=== PATIENT | male | born 1955 | race Caucasian/White ===

== ENCOUNTER → 2017-04-16 | Day surgery (SDC) | payer OTHER ==
[~2017-04-16] VITALS: Ht 180.3 cm; Wt 117.9 kg
[~2017-04-16] MED LIST: ALBUTEROL2.5 MG/31 INH; ALEVE220 MG PO; B COMPLEX1 EACH PO; CRESTOR20 MG PO; LASIX 40 MG TAB40 M1 PO; MELATONIN 10 M1 EACH PO; METHYLFOLATE PO; MUCINEX600 MG PO; NEURONTIN 300300 M1 PO; NIASPAN ER 101000 M1 PO; POTASSIUM20 PO; PRAVACHOL40 MG PO; PRINIVIL10 MG PO; PROAIR HFA8.5 GM INH; SINGULAIR 10 MG10 M1 PO; SPIRIVA INH; SYMBICORT160 MCG/4. INH; VITAMIN C1000 MG PO; VITAMIN D2000 UNI1 PO
--- NOTE | ~2017-04-16 | O ---
[facility] [place] [address] OPERATIVE REPORT Name: NINFA CAMP Room #: 150-13 [facility]#: [id number] Admission: 04/16/17 Attend Phys: Abundio Millan MD Discharge: Date of : 55 Report #: [id number] THIS REPORT FOR: //name// CC: Donna Millan DATE OF SERVICE: 04/16/2017 SURGEON: Abundio Millan M.D. FIELD CROP FARMER: None. PREOPERATIVE DIAGNOSIS: Bilateral lower lid ectropion. POSTOPERATIVE DIAGNOSIS: Bilateral lower lid ectropion. OPERATION PERFORMED: Bilateral lower lid ectropion repair. ANESTHESIA: Local with IV sedation. COMPLICATIONS: None. INDICATIONS FOR PROCEDURE: This patient has bilateral acquired lower lid ectropion with chronic tearing and discharge. The current procedures are undertaken in order to improve the patient's visual function, lacrimal outflow, and level of comfort. Informed consent was obtained to include but not limit to the risk of loss of vision, bleeding, infection, scarring, failure to improve the problem and need for further surgery. DESCRIPTION OF OPERATION: The patient was taken to the operating room where 2% Xylocaine with epinephrine mixed with equal parts of 0.75% Marcaine with Wydase was administered transcutaneously and transconjunctivally to each lower lid and lateral canthal area. The patient was then prepped and draped in the usual sterile fashion. A Page clamp was then used to clamp the left lateral canthus following which a sharp canthotomy and cantholysis were performed. The tarsal strip was prepared laterally, removing the lash bearing portion of the redundant lid margin and the redundant tarsal plate. Hemostasis was achieved with a monopolar cautery, as it was throughout the case. The tarsal strip was then secured to the internal portion of the lateral orbital tubercle with two interrupted 5-0 Prolene sutures. The lateral canthal angle was sharply reformed as the subcutaneous structures and the skin were closed with multiple interrupted 6-0 plain gut sutures. Attention was then turned to the right side where the same procedure was [facility] [address] [place] [address] OPERATIVE REPORT Name: CONRADONINFA Meraz Room #: 150-13 [facility]..#: [id number] Admission: 04/16/17 Attend Phys: Abundio Millan MD Discharge: Date of : 55 Report #: [id number] performed. The wounds were cleaned and dressed with ophthalmic antibiotic ointment. The patient was then transported to the recovery area, having tolerated the procedure well with no anesthetic or operative complications being noted. By: 1301 1330 Abundio Millan MD /nt
[2017-04-16 11:59] LABS: CALCIUM 9.9 mg/dL (8.5-10.1); CREATININE 0.9 mg/dL (0.7-1.3); POTASSIUM 3.9 mmol/L (3.5-5.1)
== END | disposition home or self-care (01) ==
LOC: OR 05:37 → TBA 05:37 → OR 12:06
PROVIDERS: Ophthalmology
DX: H02.105 Unspecified ectropion of left lower eyelid (principal); H02.102 Unspecified ectropion of right lower eyelid; I10 Essential (primary) hypertension; E78.5 Hyperlipidemia, unspecified; J45.909 Unspecified asthma, uncomplicated; G47.33 Obstructive sleep apnea (adult) (pediatric); K21.9 Gastro-esophageal reflux disease without esophagitis; F17.210 Nicotine dependence, cigarettes, uncomplicated; Z95.0 Presence of cardiac pacemaker; Z98.890 Other specified postprocedural states; Z91.040 Latex allergy status; Z88.1 Allergy status to other antibiotic agents; Z79.899 Other long term (current) drug therapy
CPT/HCPCS: 50010; 50101; 50386; 50398; 51636; 56527; 56531; 62110; 62850; 70005

== ENCOUNTER 2017-05-14 06:50 | Day surgery (SDC) | payer OTHER ==
[~2017-05-14] VITALS: Ht 180.3 cm; Wt 117.9 kg
--- NOTE | ~2017-05-14 | O ---
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 PROCEDURE: Right upper lid full thickness resection with myocutaneous flap repair, correction of right upper lid entropion by flap. SURGEON: Abundio Millan MD SUPERVISOR AREA: None. ANESTHESIA: MAC. COMPLICATIONS: None. INDICATIONS FOR SURGERY: This pleasant 61-year-old gentleman has profound upper lid laxity with chronic ocular irritation and poor visual function secondary to his mechanical entropion, ocular irritation and chronic discharge. He presents today for a right upper lid procedure in order to attempt to improve his ocular surface, improve his level of comfort, reduce his discharge and enhance his visual function. Informed consent was obtained to include, but not limit to the potential risk for loss of vision, bleeding, infection, failure to improve the problem, and the potential need for further surgery or treatment. DESCRIPTION OF PROCEDURE: The patient was taken to the operating room where 2% Xylocaine with epinephrine mixed with equal parts of 0.75% Marcaine with Wydase was administered transcutaneously and transconjunctivally to the right upper lid, the right temporal fossa, the right brow, and the right lateral canthus. The patient was subsequently prepped and draped in the usual sterile fashion. A fine tip skin marking pen was then used to outline the redundant right upper lid tissue across the eyelid margin. Over an inch of tissue could be removed and was subsequently outlined. The incisions were then made perpendicularly across the eyelid margin and then drawn to a point at the base of the brow. The [address] [address] OPERATIVE REPORT Name: NINFA CAMP Room #: DEP [facility]#: [id number] Admission: 05/14/17 Attend Phys: Abundio Millan MD Discharge: 05/14/17 Date of : 55 Report #: [id number] patient had an inclusion cyst in his right upper lid from a prior intervention that was included in the tissue to be excised. Hemostasis was then achieved with diligent pinpoint monopolar cautery. The medial right upper lid was then everted with subsequent dissection across the medial aspect of the lid allowing the right upper lid to be everted superiorly with the anterior lamella moving superiorly and the posterior lamella moving inferiorly. Interrupted 6-0 Vicryl sutures were used to establish the entropion repair by flap. The tissue was then undermined laterally into the infratemporal fossa to allow a myocutaneous flap to be brought into correct the defect in the lateral right upper lid. Hemostasis was then re-achieved. The flap was then advanced and closed with multiple interrupted 6-0 Vicryl sutures deep with 7-0 Vicryl sutures on the eyelid margin. The subcutaneous structures were then closed with additional Vicryl sutures subcutaneously and then 6-0 plain gut sutures superficially. The lid everted and lifted well. The wound was then cleaned and dressed with erythromycin ointment. The patient subsequently transported to the recovery area having tolerated the procedures well with no anesthetic or operative complications being noted. <ELECTRONICALLY SIGNED> By: Abundio Millan MD 05/21/17 0625 1304 1353 Abundio Millan MD /nt
[~2017-05-14 06:50] MED LIST changes: +MELATONIN10 M2 PO
[2017-05-14 11:09] LABS: CALCIUM 9.7 mg/dL (8.5-10.1); POTASSIUM 4.6 mmol/L (3.5-5.1)
[2017-05-14 11:15] VITALS: BP 115/63
[2017-06-11] MEDS ORDERED: TAMIFLU30 MG PO (16:29)
[2017-07-19] MEDS ORDERED: PREDNISONE 10 M10 MG PO (14:21)
[2017-07-19] MEDS ORDERED: BREO ELLIPTA 21 EACH INH (14:22)
[2017-08-20] MEDS ORDERED: CHANTIX1 MG PO (15:34)
== END 2017-05-14 16:18 | disposition home or self-care (01) ==
LOC: TBA 06:50 → OR 06:50
PROVIDERS: Ophthalmology
DX: H02.89 Other specified disorders of eyelid (principal); H02.001 Unspecified entropion of right upper eyelid; H18.9 Unspecified disorder of cornea; I10 Essential (primary) hypertension; J45.909 Unspecified asthma, uncomplicated; G47.33 Obstructive sleep apnea (adult) (pediatric); E78.5 Hyperlipidemia, unspecified; K21.9 Gastro-esophageal reflux disease without esophagitis; F17.210 Nicotine dependence, cigarettes, uncomplicated; Z98.890 Other specified postprocedural states; Z91.040 Latex allergy status; Z88.8 Allergy status to other drugs, medicaments and biological substances; Z79.899 Other long term (current) drug therapy
CPT/HCPCS: 50010; 50101; 50386; 50398; 51636; 56527; 56528; 56531; 62110; 62850

== ENCOUNTER 2017-08-27 05:30 | Day surgery (SDC) | payer OTHER ==
[~2017-08-27] VITALS: Ht 180.3 cm; Wt 116.1 kg
--- NOTE | ~2017-08-27 | O ---
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 PROCEDURE: Left upper lid full thickness resection with myocutaneous flap repair, correction of left upper lid entropion by flap. SURGEON: Abundio Millan M.D. CYLINDER INSPECTOR AND TESTER: None. ANESTHESIA: MAC. COMPLICATIONS: None. INDICATIONS FOR SURGERY: This pleasant 62-year-old gentleman has profound upper lid laxity with obstructive sleep apnea and chronic ocular irritation. He has poor visual function secondary to his mechanical entropion, the ocular irritation and chronic discharge. He presents today for a left upper lid surgical intervention in order to attempt to improve his ocular surface, level of comfort, discharge and to enhance his visual function. Informed consent was obtained to include but not limited to potential risk for loss of vision, bleeding, infection, failure to improve the problem, and the potential need for further surgery or treatment. He also understands that this surgery has limited effect on the underlying anatomy and that recurrence often occurs. DESCRIPTION OF PROCEDURE: The patient was taken to the operating room where 2% Xylocaine with epinephrine mixed with equal parts of 0.75% Marcaine with Wydase was administered transcutaneously and transconjunctivally to the left upper lid, the left infratemporal fossa, the left brow and the left lateral canthus. The patient was subsequently prepped and draped in the usual sterile fashion. A fine tip skin marking pen was then utilized to outline the redundant upper lid tissue across the lid margin. Over an inch of tissue could be removed and [address] [address] OPERATIVE REPORT Name: NINFA CAMP Room #: 150-3 [facility]..#: [id number] Admission: 08/27/17 Attend Phys: Abundio Millan MD Discharge: Date of : 55 Report #: [id number] subsequently outlined it in a pentagonal fashion. The incisions were then made perpendicularly across the eyelid margin and drawn to a point at the base of the brow. Hemostasis was achieved with diligent pinpoint monopolar cautery at this point. The medial left upper lid was then everted with subsequent dissection across the medial aspect of the lid allowing the left upper lid to be everted. The anterior lamella was moved superiorly over the posterior lamella and fixated with multiple interrupted 6-0 Vicryl sutures. A myocutaneous flap was then developed laterally in the infratemporal fossa to correct the induced defect. Hemostasis was achieved with monopolar cautery. The flap was then rotated into position and secured with multiple interrupted deep 6-0 Vicryl sutures. The tarsal plate was reapproximated with interrupted 5-0 Vicryl sutures. The eyelid margin itself was reapproximated with interrupted 7-0 Vicryl sutures. Subcutaneous structures more superficially were closed with interrupted buried Vicryl sutures deep and then 6-0 plain gut sutures more superficially. The wounds were then cleaned and dressed with erythromycin ophthalmic ointment. The patient was subsequently transported to the recovery area having tolerated both procedures well with no anesthetic or operative complications being noted. <ELECTRONICALLY SIGNED> By: Abundio Millan MD 08/27/17 1651 1415 1544 Abundio Millan MD /nt
--- NOTE | ~2017-08-27 | EKG ---
[place] [address] [email or web address] [address] ELECTROCARDIOGRAM REPORT Name: NINFA CAMP Room #: [facility]#: [id number] Admission: 08/27/17 Attend Phys: Abundio Millan MD Discharge: 08/27/17 Date of : 55 Report #: [id number] THIS REPORT FOR: //name// [facility] Test Date: 2017-08-27 Test Time: 12:41:39 Pat Name: NINFA CAMP Department: Room: 150 3 Gender: M Clearing Supervisor: TANIA : 1955 Requested By: Abundio Millan Order Number: [id number] MD: Sukhdeep Shelton Measurements Intervals Tiona Rate: 83 P: 77 ME: 199 QRS: 80 QRSD: 123 T: QT: 367 QTc: 432 Interpretive Statements Atrial-sensed ventricular-paced complexes No further analysis attempted due to paced rhythm No previous ECG available for comparison Electronically Signed On 08-28-2017 9:02:59 CDT by Sukhdeep Shelton [email or web address] <ELECTRONICALLY SIGNED> By: Sukhdeep Shelton MD, [facility] 08/28/17 0902 D: 04/1240 124 Sukhdeep Shelton MD, FACC /EPI
[~2017-08-27 05:30] MED LIST changes: +BREO ELLIPTA 21 EACH INH; +CHANTIX1 MG PO; +PREDNISONE 10 M10 MG PO; +TAMIFLU30 MG PO
[2017-08-27 12:51] LABS: CALCIUM 9.7 mg/dL (8.5-10.1); CREATININE 1.1 mg/dL (0.7-1.3)
[2017-08-27 13:00] VITALS: BP 118/62
== END 2017-08-27 15:15 | disposition home or self-care (01) ==
LOC: OR 05:30 → TBA 05:31 → OR 07:54
PROVIDERS: Ophthalmology
DX: H21.81 Floppy iris syndrome (principal); G47.33 Obstructive sleep apnea (adult) (pediatric); H02.004 Unspecified entropion of left upper eyelid; H18.9 Unspecified disorder of cornea; J44.9 Chronic obstructive pulmonary disease, unspecified; G47.30 Sleep apnea, unspecified; F17.210 Nicotine dependence, cigarettes, uncomplicated; I10 Essential (primary) hypertension; E78.5 Hyperlipidemia, unspecified; Z95.0 Presence of cardiac pacemaker; K21.9 Gastro-esophageal reflux disease without esophagitis; G62.9 Polyneuropathy, unspecified
CPT/HCPCS: 50010; 50101; 50386; 50398; 51636; 56528; 56531; 62110; 62850; 70005